=== PATIENT | male | born 1960 | race Caucasian/White ===

== ENCOUNTER 2019-10-29 07:16 | Outpatient (CLI) | payer OTHER, SELFPAY ==
--- NOTE | 2019-10-29 07:15 | XR_ITS ---
WS: [id number] XR KUB [id number] REASON FOR EXAM: . FINDINGS: Numerous calcified densities are seen in the right upper quadrant of the abdomen most likel y these are renal calculus although gallstones could give similar appearance. There is also small stones seen in the left kidney. There is degenerate changes of the lumbar spine. XR/XR KUB 45000 IMPRESSION: Persistent multiple stones overriding the right kidney most likely renal calcul us although gallstones could give a similar impression. There stones seen in the left kidney.
== END 2019-10-29 07:17 | disposition home or self-care (01) ==
LOC: RAD 07:18
PROVIDERS: Family Provider Internal Medicine; PCP Internal Medicine; Visit Provider Urology
DX: N20.0 Calculus of kidney (principal)
CPT/HCPCS: 74018; 81001

== ENCOUNTER 2020-01-26 11:21 | Emergency (ER) | payer OTHER, SELFPAY ==
--- NOTE | 2020-01-26 11:25 | XR_ITS ---
WS: [id number] XR knee LT 3V* [id number] REASON FOR EXAM: injury FINDINGS: No fractures of the patella, femur, tibia, fibula. The meniscal spaces are well preserved. The patellofemoral articulation show degenerate changes. The patella tibial spaces were normal. XR/XR knee LT 3V* [id number] IMPRESSION: Mild osteoarthritic changes No fractures seen.
[2020-01-26 12:28] VITALS: BP 112/79; PULSE 83; RESP 14; TEMP 36.4; O2SAT 95; BMI 37.8
--- NOTE | 2020-01-26 12:34 | ED_ITS ---
HPI - Extremity Problem General: Chief complaint: Extremity Injury, Lower Stated complaint: LEFT KNEE PAIN Time Seen by Provider: 01/26/20 12:34 History of Present Illness: HPI Narrative: Patient is a 59-year-old male comes to the ED with left knee pain. Patient states that on Sunday he tripped over a trailer and his left knee hit the ground. Ever since fall he has had left knee pain with some swelling. pt came to the ED to check if he had any fractures . Associated symptoms: Deny chest pain, fever(s) or rash Review of Systems Const: Denies: fever(s), chills or fatigue Eyes: Denies: change in vision or eye discomfort ENMT: Denies: throat pain, odynophagia, nasal discharge or nasal congestion Card: Denies: chest pain, palpitations, edema, swelling of feet/ankles, dyspnea on exertion or orthopnea Resp: Denies: dyspnea, productive cough or non-productive cough GI: Denies: abdominal pain, nausea, vomiting, diarrhea, constipation or hematochezia : Denies: flank pain, difficulty urinating, dysuria or hematuria Musc: Reports: extremity pain (left knee) and extremity swelling (left knee); Denies: neck pain or back pain Skin/Breast: Denies: rash or new lesions Neuro: Denies: headache(s), numbness in extremities or weakness in extremities PFS ED PFSH: Medical History Bilateral renal stones Chronic low back pain Encounter for long-term opiate analgesic use H/O renal calculi S/P extracorporeal shock wave therapy Surgical History History of back surgery Hx of decompressive lumbar laminectomy Family History Mother , 82 Dementia Father , 66 CAD (coronary artery disease) Stroke Hypertension Social History Smoking and tobacco status: never smoked Alcohol intake: never Marital status: Current occupational status: retired History of recent travel: No Physical Exam Const: COMMON NORMALS: no acute distress and patient oriented x3 GENERAL APPEARANCE: cooperative and comfortable HENMT: COMMON NORMALS: normocephalic HEAD & SCALP: normocephalic MOUTH: Normal oral and palatal mucosa present THROAT: posterior oropharynx normal and uvula midline Neck/C-Spine: COMMON NORMALS: supple GENERAL: Yes normal visual inspection Resp: COMMON NORMALS: normal respiratory effort, No retractions, No use of accessory muscles and clear to auscultation bilaterally AUSCULTATION: clear to auscultation bilaterally Cardio: COMMON NORMALS: regular rate, regular rhythm, S1 normal heart sound present, S2 normal heart sound present, No gallops present (Cardio), No clicks present (Cardio), No murmurs present (Cardio) and Peripheral pulses 2+ throughout RATE: regular rate RHYTHM: regular rhythm HEART SOUNDS: S1 normal heart sound present and S2 normal heart sound present PERIPHERAL PULSES: Peripheral pulses 2+ throughout GI: COMMON NORMALS: Normal to inspection, nondistended, normoactive bowel sounds present, Soft to palpation, non-tender and no masses PALPATION: Yes Soft to palpation : COMMON NORMALS: Yes no CVA tenderness BLADDER/KIDNEY EXAM: Yes no CVA tenderness Back/Pelvis: COMMON NORMALS: no CVA tenderness Extremity: COMMON NORMALS: no pedal edema LEFT LOWER EXTREMITY: Yes knee joint Left knee: Yes inspection (pt had some swelling around knee with out any warmth or erythema.), Yes palpation (tenderness over anterior aspect of knee), Yes ROM (full but does cause pain) and Yes neurovascular exam (intact) Neuro: COMMON NORMALS: patient oriented x3 and moves all extremities Skin: TRAUMA: abrasion (superficial abrasion on left wu. not actively bleeding. scab w/ healing) Course Vital Signs: Vital signs: Vital Signs Temperature 97.6 F 01/26/20 12:28 Pulse Rate 72 01/26/20 13:27 Respiratory Rate 18 01/26/20 13:27 Blood Pressure 148/74 01/26/20 13:27 Pulse Oximetry 98 01/26/20 13:27 MDM - Extremity (Nontraumatic) Imaging Data^: Xray Ortho: Attestation: I personally reviewed and interpreted this imaging study as follows: Radiologist's impression: [address] [address] XRay Report Signed Patient: Jairo José Unit #: [id number] : 1960 Age/Sex: 59 / M ADM Date: 01/26/20 Loc: ER Room/Bed: Attending Dr: Ordering Provider/Ordering MD: Lazaro Joe MD Date of Service: 01/26/20 Procedure(s): XR knee LT 3V* [id number] Accession Number(s): [id number] Report Number: [id number] WS: [id number] XR knee LT 3V* [id number] REASON FOR EXAM: injury FINDINGS: No fractures of the patella, femur, tibia, fibula. The meniscal spaces are well preserved. The patellofemoral articulation show degenerate changes. The patella tibial spaces were normal. XR/XR knee LT 3V* [id number] IMPRESSION: Mild osteoarthritic changes No fractures seen. Dictated By: Tomasz Pedro DO Signed By: Tomasz Pedro DO Signed Date/Time: 01/26/20 1231 DD/ 1230 Discharge Plan Discharge Patient Disposition: Home, Self-Care Clinical Impression: Contusion of knee, left Qualifiers: Encounter type: initial encounter Qualified Code(s): S80.02XA - Contusion of left knee, initial encounter Condition: Stable Prescriptions: No Action celecoxib [Celebrex] 200 mg capsule 200 mg PO DAILY RF: 0 clopidogrel [Plavix] 75 mg tablet 75 mg PO DAILY RF: 0 bupropion HCl (smoking deter) 150 mg tablet extended release 12 hr 150 mg PO BID RF: 0 venlafaxine 75 mg tablet 75 mg PO DAILY RF: 0 multivitamin Tablet 1 tab PO DAILY RF: 0 aspirin 81 mg tablet,delayed release (DR/EC) 81 mg PO DAILY RF: 0 cholecalciferol (vitamin D3) 2,000 unit tablet 2,000 unit PO DAILY RF: 0 metoprolol tartrate 50 mg tablet 50 mg PO BID RF: 0 atorvastatin 40 mg tablet See Rx Instructions PO DAILY RF: 0 lisinopril 40 mg tablet 40 mg PO DAILY RF: 0 hydrocodone-acetaminophen 10-325 mg tablet 1 tab PO BID PRN (Reason: pain) 30 Days Qty: 60 RF: 0 cyclobenzaprine 10 mg tablet 10 mg PO .PRN 30 Days Qty: 60 RF: 1 hydrocodone-acetaminophen 10-325 mg tablet 1 tab PO BID PRN (Reason: pain) 30 Days Qty: 60 RF: 0 Discharge Orders: Discharge Order (Routine); Ordered 01/26/20 Ordered By: Fred Harrell Referrals: Roberto Giron [Primary Care Provider] - Discharge Diet: Regular Discharge Activity: Increase activity as tolerated Patient Instructions: Knee Pain (ED) Activity Restrictions/Additional Instructions: Set an appointment up with your PCP in the next 5 days for reevaluation. Rest, ice and elevate left leg to help with symptoms and swelling. Take ibuprofen up to 800 mg 3 times a day to help with pain and inflammation. Discharge Date/Time: 01/26/20 13:30 Coding Level of Care Code ED Accounts Payable Representative for Chg Fwd Exam Comprehensive
[2020-01-26] MEDS: ketorolac 30 mg/mL INJ IM (13:14)
[2020-01-26 13:27] VITALS: BP 148/74; PULSE 72; RESP 18; O2SAT 98
== END 2020-01-26 13:30 | disposition home or self-care (01) ==
PROVIDERS: Emergency Provider Physician Assistant; PCP Internal Medicine
DX: S80.02XA Contusion of left knee, initial encounter (principal); W18.09XA Striking against other object with subsequent fall, initial encounter; Z79.02 Long term (current) use of antithrombotics/antiplatelets; Z79.82 Long term (current) use of aspirin
CPT/HCPCS: 12345; 73562; 96372; 99281; 99283; J1885

== ENCOUNTER 2020-02-20 15:02 | Outpatient (CLI) | payer OTHER, SELFPAY ==
--- NOTE | 2020-02-20 15:13 | XRR_ITS ---
PROCEDURE INFORMATION: Exam: XR Chest, 2 Views Exam date and time: 02/20/2020 3:45 PM Age: 59 years old Clinical indication: Condition or disease; Other: Malignant melanoma or other part of trunk TECHNIQUE: Imaging protocol: XR of the chest Views: 2 views. COMPARISON: CR Chest 1 [place] [id number] 10/08/2015 9:50 AM FINDINGS: Lungs: Unremarkable. No consolidation. Pleural space: Unremarkable. No pleural effusion. No pneumothorax. Heart/Mediastinum: Unremarkable. No cardiomegaly. Bones/joints: Unremarkable. XR/XR chest 2V* 19483 IMPRESSION: No acute findings.
== END 2020-02-20 15:03 | disposition home or self-care (01) ==
LOC: RAD 15:08
PROVIDERS: Visit Provider Nurse Practitioner
DX: C43.59 Malignant melanoma of other part of trunk (principal)
CPT/HCPCS: 71046

== ENCOUNTER → 2020-03-02 09:36 | Outpatient (BNVA) | payer OTHER, SELFPAY | PROVIDERS: Family Provider Internal Medicine; PCP Family Medicine; Visit Provider Anesthesiology | DX: G89.29 Other chronic pain (principal); M54.42 Lumbago with sciatica, left side; Z79.891 Long term (current) use of opiate analgesic | CPT/HCPCS: 99213; 99214 ==

== ENCOUNTER 2020-03-03 07:05 | Outpatient (CLI) | payer OTHER, SELFPAY ==
--- NOTE | 2020-03-03 07:15 | XRR_ITS ---
PROCEDURE INFORMATION: Exam: XR Abdomen, 1 View Exam date and time: 03/03/2020 7:18 AM Age: 60 years old Clinical indication: Condition or disease; Kidney or ureter condition; Calculus (stone) in kidney; Additional info: Stones TECHNIQUE: Imaging protocol: XR of the abdomen. Views: Frontal supine view of the abdomen. 1 View. COMPARISON: CR XR KUB 94306 10/29/2019 7:28 AM FINDINGS: Gastrointestinal tract: No dilated gas-filled loops of bowel. Organs: There is bilateral nephrolithiasis with the stone burden being worse on the right. No significant change in the number or size of calculi in the interval. Bones/joints: Multilevel bridging osteophytes in the lumbar spine and lower thoracic spine. XR/XR KUB 51678 IMPRESSION: Bilateral, asymmetric nephrolithiasis.
== END 2020-03-03 07:06 | disposition home or self-care (01) ==
LOC: RAD 07:05
PROVIDERS: PCP Internal Medicine; Visit Provider Urology
DX: N20.0 Calculus of kidney (principal)
CPT/HCPCS: 74018; 81001

== ENCOUNTER → 2020-05-19 09:19 | Outpatient (BNVA) | payer OTHER, SELFPAY | PROVIDERS: Family Provider Internal Medicine; PCP Family Medicine; Visit Provider Anesthesiology | DX: G89.29 Other chronic pain (principal); M54.42 Lumbago with sciatica, left side; Z79.891 Long term (current) use of opiate analgesic | CPT/HCPCS: 99213; 99214 ==

== ENCOUNTER 2020-06-08 07:05 | Outpatient (CLI) | payer OTHER, SELFPAY ==
--- NOTE | 2020-06-08 07:00 | XRR_ITS ---
PROCEDURE INFORMATION: Exam: XR Abdomen, 1 View Exam date and time: 06/08/2020 7:21 AM Age: 60 years old Clinical indication: Condition or disease; Kidney or ureter condition; Calculus (stone) in kidney; Prior surgery; Surgery type: Lower back; Additional info: Bilateral renal stones TECHNIQUE: Imaging protocol: XR of the abdomen. Views: Frontal supine view of the abdomen. 1 View. COMPARISON: CR XR KUB 41007 03/03/2020 7:15 AM FINDINGS: Gastrointestinal tract: Mild bowel dilatation and prominent stool. Organs: Bilateral renal calculi, including an 11 mm right renal calculus. Note the renal fossa are partially obscured by overlying bowel gas and stool. Bones/joints: Degenerative change. XR/XR KUB 66677 IMPRESSION: Bilateral renal calculi, including an 11 mm right renal calculus. Note the renal fossa are partially obscured by overlying bowel gas and stool.
== END 2020-06-08 07:06 | disposition home or self-care (01) ==
LOC: RAD 07:07
PROVIDERS: PCP Family Medicine; Visit Provider Urology
DX: N20.0 Calculus of kidney (principal)
CPT/HCPCS: 74018; 81001

== ENCOUNTER → 2020-07-14 07:58 | Outpatient (BNVA) | payer OTHER, SELFPAY | PROVIDERS: PCP Family Medicine; Visit Provider Anesthesiology | DX: G89.29 Other chronic pain (principal); M54.42 Lumbago with sciatica, left side; M54.41 Lumbago with sciatica, right side; Z79.891 Long term (current) use of opiate analgesic | CPT/HCPCS: 99212; 99214 ==

== ENCOUNTER → 2020-09-07 09:31 | Outpatient (BNVA) | payer OTHER, SELFPAY | PROVIDERS: PCP Family Medicine; Visit Provider Anesthesiology | DX: G89.29 Other chronic pain (principal); M54.5 Low back pain; Z79.891 Long term (current) use of opiate analgesic | CPT/HCPCS: 99213 ==

== ENCOUNTER → 2020-10-28 08:40 | Outpatient (BNVA) | payer OTHER, SELFPAY | PROVIDERS: PCP Family Medicine; Visit Provider Anesthesiology | DX: G89.29 Other chronic pain (principal); M54.5 Low back pain; Z79.891 Long term (current) use of opiate analgesic | CPT/HCPCS: 99213 ==

== ENCOUNTER → 2021-01-14 08:45 | Outpatient (BNVA) | payer OTHER, SELFPAY | PROVIDERS: PCP Family Medicine; Visit Provider Anesthesiology | DX: G89.29 Other chronic pain (principal); M54.5 Low back pain; Z79.891 Long term (current) use of opiate analgesic | CPT/HCPCS: 99213 ==

== ENCOUNTER → 2021-04-06 13:26 | Outpatient (BNVA) | payer OTHER, SELFPAY | PROVIDERS: PCP Family Medicine; Visit Provider Anesthesiology | DX: G89.29 Other chronic pain (principal); M54.5 Low back pain; Z79.891 Long term (current) use of opiate analgesic | CPT/HCPCS: 99213 ==

== ENCOUNTER 2021-06-08 07:04 | Outpatient (CLI) | payer OTHER, SELFPAY ==
--- NOTE | 2021-06-08 07:15 | XR_ITS ---
WS: [id number] XR KUB 38933 REASON FOR EXAM: RENAL STONES FINDINGS :Examination degraded by motion artifact. Right intrarenal calculi unchanged compared to 06/08/2020. Left renal calculi unchanged compared to 06/08/2020. No calculi along the course of the ureters or overlying the bladder identified. No other significant abdominal abnormality. XR/XR KUB 33066 IMPRESSION: Bilateral renal calculi unchanged compared to 06/08/2020.
== END 2021-06-08 07:05 | disposition home or self-care (01) ==
LOC: RAD 07:06
PROVIDERS: PCP Family Medicine; Visit Provider Urology
DX: N20.0 Calculus of kidney (principal)
CPT/HCPCS: 74018; 81003

== ENCOUNTER → 2021-06-21 08:39 | Outpatient (BNVA) | payer OTHER, SELFPAY | PROVIDERS: PCP Family Medicine; Visit Provider Anesthesiology | DX: G89.29 Other chronic pain (principal); M54.50 Low back pain, unspecified; Z79.891 Long term (current) use of opiate analgesic; Z87.891 Personal history of nicotine dependence | CPT/HCPCS: 99213 ==

== ENCOUNTER → 2021-08-24 13:52 | Outpatient (BNVA) | payer OTHER, SELFPAY | PROVIDERS: PCP Family Medicine; Visit Provider Anesthesiology | DX: G89.29 Other chronic pain (principal); M45.0 Ankylosing spondylitis of multiple sites in spine; Z79.891 Long term (current) use of opiate analgesic; Z87.891 Personal history of nicotine dependence | CPT/HCPCS: 99213 ==

== ENCOUNTER → 2021-11-14 09:53 | Outpatient (BNVA) | payer OTHER, SELFPAY | PROVIDERS: PCP Family Medicine; Visit Provider Surgery | DX: Z20.822 Contact with and (suspected) exposure to COVID-19 (principal); Z11.52 Encounter for screening for COVID-19 | CPT/HCPCS: 87635 ==

== ENCOUNTER 2021-11-17 08:31 | Day surgery (SDC) | payer OTHER, SELFPAY ==
[2021-11-16 09:01] VITALS: BMI 35.5
--- NOTE | 2021-11-17 08:46 | ANES.PREANE2 ---
Pre-Anesthetic Assessment Height/Weight: Height 1.96 m Weight 136.078 kg Operation Date: 11/17/21 10:15 Proposed Procedures p Colonoscopy 45557/r94.8(Not Applicable) - Jesús Oliva MD Familial anesthetic complications: None Was Beta Meseret taken within 24 hours: Yes Was Clonidine taken within 24 hours: N/A Last intake: > 8hrs Social No alcohol and No tobacco Exam alert, oriented x 3, clear to auscultation bilaterally and regular rate & rhythm Airway Mallampati: Class IV Dentition: other (missing) Comments: Comments: large tongue, poor mouth opening CV/HEM Coronary Artery Disease (> 1 year ago - 2 stents) and Hypertension Hepatic None reported GI None reported Metabolic None reported Musc/skel None reported Neuropsych None reported Anesthetic Plan ASA status: 3 Anesthesia: MAC Risk of > 500 ml blood loss (7ml/kg in children): No Medications/Allergies Home Medications Medication Instructions Recorded Confirmed Last Taken Type aspirin 81 mg tablet,delayed 81 mg PO DAILY 10/29/19 11/16/21 Unknown History release atorvastatin 40 mg tablet See Rx Instructions PO DAILY tab 10/29/19 11/16/21 Unknown History bupropion HCl (smoking deter) 150 150 mg PO BID 10/29/19 11/16/21 Unknown History mg tablet,12 hr sustained-release(smoking deterrent) celecoxib 200 mg capsule (Celebrex) 200 mg PO DAILY 10/29/19 11/16/21 Unknown History cholecalciferol (vitamin D3) 50 2,000 unit PO DAILY 10/29/19 11/16/21 Unknown History mcg (2,000 unit) tablet clopidogrel 75 mg tablet (Plavix) 75 mg PO DAILY 10/29/19 11/16/21 Unknown History lisinopril 40 mg tablet 40 mg PO DAILY 10/29/19 11/16/21 Unknown History metoprolol tartrate 50 mg tablet 50 mg PO BID tab 10/29/19 11/16/21 Unknown History multivitamin 1 tab PO DAILY 10/29/19 11/16/21 Unknown History venlafaxine 75 mg tablet 75 mg PO DAILY 10/29/19 11/16/21 Unknown History prazosin 2 mg capsule 2 mg PO .BEDTIME cap 03/02/20 11/16/21 Unknown History fluticasone propionate 50 1 spray INTRANASAL DAILY 04/06/21 11/16/21 Unknown History mcg/actuation nasal spray,suspension cyclobenzaprine 10 mg tablet 10 mg PO .PRN 30 Days #60 tab 08/24/21 11/16/21 Unknown Rx hydrocodone 10 mg-acetaminophen 1 tab PO BID PRN 30 Days #60 tab 08/24/21 11/16/21 Unknown Rx 325 mg tablet hydrocodone 10 mg-acetaminophen 1 tab PO BID PRN 30 Days #60 tab 08/24/21 11/16/21 Unknown Rx 325 mg tablet Allergies Allergy/AdvReac Type Severity Reaction Status Date / Time No Known Allergies Allergy Verified 11/04/21 10:59 [facility] Anesthesia Medical History Bilateral renal stones Chronic low back pain Encounter for long-term opiate analgesic use H/O renal calculi Opioid contract exists S/P extracorporeal shock wave therapy Surgical History History of back surgery Hx of decompressive lumbar laminectomy Family History Mother , 82 Dementia Father , 66 CAD (coronary artery disease) Stroke Hypertension Social History Smoking and tobacco status: former smoker Second hand smoke exposure: No Alcohol intake: never Marital status: Current occupational status: retired History of recent travel: No Data Anesthesia Cardiac Studies: No Data to Display
[2021-11-17] MEDS: sodium chloride 0.9% 1,000 ML 30 ML IV (09:20)
--- NOTE | 2021-11-17 09:37 | W.PM.OPSUD ---
Surgery/Procedure H&P Update DATE OF PROCEDURE: November 17, 2021 DATE H&P PERFORMED: 11/02/21 H&P UPDATE INFORMATION: I have reviewed H&P completed within last 30 days, I have examined patient prior to procedure and No changes to prior documentation PREOP DIAGNOSIS: Abnormal PET CT scan of the colon PRIMARY INDICATION FOR PROCEDURE: The same PLANNED PROCEDURE: Operation Date: 11/17/21 10:15 Proposed Procedures p Colonoscopy 26517/r94.8(Not Applicable) - Jesús Oliva MD
[2021-11-17 11:28] VITALS: BP 103/69; PULSE 79; RESP 16; TEMP 36.2; O2SAT 94
[2021-11-17 11:38] VITALS: BP 115/74; PULSE 81; RESP 17; TEMP 36.2; O2SAT 97
== END 2021-11-17 11:53 | disposition home or self-care (01) ==
PROVIDERS: PCP Family Medicine; Visit Provider Surgery
PROC: 0DJD8ZZ Inspection of Lower Intestinal Tract, Via Natural or Artificial Opening Endoscopic (ICD-10-PCS; CPT 45378; principal; 2021-11-17 10:15)
DX: R94.8 Abnormal results of function studies of other organs and systems (principal); I25.10 Atherosclerotic heart disease of native coronary artery without angina pectoris; Z95.5 Presence of coronary angioplasty implant and graft; I10 Essential (primary) hypertension; Z79.82 Long term (current) use of aspirin; Z79.891 Long term (current) use of opiate analgesic; Z87.891 Personal history of nicotine dependence
CPT/HCPCS: 45378; G0121; J7030

== ENCOUNTER → 2021-11-30 08:15 | Outpatient (BNVA) | payer OTHER, SELFPAY | PROVIDERS: PCP Family Medicine; Visit Provider Surgery | DX: Z98.890 Other specified postprocedural states (principal) | CPT/HCPCS: 99213 ==

== ENCOUNTER → 2022-04-04 14:19 | Outpatient (BNVA) | payer OTHER, SELFPAY | PROVIDERS: PCP Family Medicine; Visit Provider Internal Medicine | DX: R07.9 Chest pain, unspecified (principal); I25.10 Atherosclerotic heart disease of native coronary artery without angina pectoris; Z87.891 Personal history of nicotine dependence | CPT/HCPCS: 99203; 99204 ==

== ENCOUNTER 2022-06-08 06:58 | Outpatient (CLI) | payer OTHER, SELFPAY ==
--- NOTE | 2022-06-08 07:05 | XR_ITS ---
WS: [id number] KUB, AP view, 06/08/2022 Clinical Data: Bilateral Renal Stones Comparison: KUB, 06/08/2021 Findings: There are bilateral renal calcifications unchanged. Fecal material and bowel gas obscures detail over both kidneys. The true pelvis shows no significant calcifications. There is osteoarthritis with dext roscoliosis of the lumbar spine. XR/XR KUB 53752 Impression: No change in bilateral renal calcifications.
== END 2022-06-08 06:59 | disposition home or self-care (01) ==
LOC: RAD 07:00
PROVIDERS: PCP Family Medicine; Visit Provider Urology
DX: N20.0 Calculus of kidney (principal)
CPT/HCPCS: 74018; 81003; 99213

== ENCOUNTER 2022-07-07 08:07 | Outpatient (CLI) | payer OTHER, SELFPAY ==
--- NOTE | 2022-07-07 08:18 | NMCV_ITS ---
NM otilio perf SPECT r/s* [id number] Jairo José Age: 62 Gender: M : 1960 Exam Date: 07/07/2022 09:42 Ordering Phys: Stewart Jaimes M.D ([email or web address]) Technologist: JIMMIE Yepez Exam Location: [facility] Indications: CHEST PAIN STRESS TEST Please see separate stress test report in [facility] for full findings IMAGE PROTOCOL Rest/Stress 1 Lexiscan Day Radiopharmaceutical Dose (mCi) Administration Site Administered by Rest: Tc-99m 9.5 IV JIMMIE Alcala Sestamibi Stress:Tc-99m 28.4 IV JIMMIE Alcala Sestamibi Rest: 07-Jul-2022 60 Discovery 630 Stress: 07-Jul-2022 30 Discovery 630 0.4mg Lexiscan. Images obtained in supine and prone position. SPECT RESULTS Technical Quality: Excellent Raw Data Analysis: Normal Image Corrections: No attenuation or motion correction applied Summed Stress Score: 9 Summed Rest Score: 3 Summed Difference Score: 6 PERFUSION FINDINGS Small sized perfusion abnormality of mid anterior and apical inferior murphy with reversibility in mid to apical anterior and basal to apical inferior and apical lateral murphy. FUNCTIONAL RESULTS (calculated via Gated SPECT) Stress Image LV EF (%): 60 Stress EDV (mL):114 TID: 1.15 Stress ESV (mL):46 FUNCTIONAL FINDINGS: The left ventricle is normal in size. Transient Ischemia Dilatation of 1.1. The left ventricular ejection fraction is normal with a value of 60%. There seems to be hypokinesis of inferior wall. IMPRESSIONS 1. Medium sized partially reversible mid to apical anterior, basal to apical inferior and apical lateral murphy. 2. This may represent old myocardial infarction with mild gerardo-infarct ischemia in left anterior descending/right coronary artery territory. 3. The left ventricular ejection fraction is normal with a value of 60%. 4. There seems to be hypokinesis of inferior wall. 5. EKG portion of the study will be reported separately. Peggy Calvin MD (Electronically Signed) Final Date: 09 July 2022 11:36 S
--- NOTE | 2022-07-07 08:18 | ECG_ITS ---
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 Interpretive Statements NAME OF STUDY: LEXISCAN SESTAMIBI STRESS TEST INDICATION: Chest Pain, PROCEDURE: At the baseline, the EKG revealed normal sinus rhythm with normal ST Ts. Q waves in the inferior leads suggesting possible old inferior wall IA. The baseline heart was 79 bpm with a blood pressue of 105/76 mm of Hg Lexiscan was infused over a period of 20 seconds. A total of 0.4 milligrams of Lexiscan was infused. The stress phase was continued for a total of 5 minutes. Heart rate at the end of the stress phase was 86 bpm with a blood pressure 110/76 mm of Hg. The EKG at the peak infusion revealed no significant changes. Sestamibi was injected 20 seconds after the Lexiscan infusion. Heart rate at the end of the recovery phase was 85 bpm with a blood pressure of 108/78 mm of Hg. CONCLUSION: 1. No significant EKG changes with the LexiScan infusion 2. No LexiScan induced chest pain or cardiac arrhythmia 3. Normal blood pressure and heart rate response 4. Sestamibi/sestamibi perfusion scan pending; see separate report. Electronically Signed On 07-16-2022 17:11:04 SCRUBBER SYSTEM ATTENDANT by Brigid Wyatt M.D. [id number]
[2022-07-07 09:09] VITALS: BMI 37.4
[2022-07-07] MEDS: regadenoson 0.4 Mg/5 ml Syringe IVP (10:14)
[2022-07-07 10:36] VITALS: BP 108/77; PULSE 85
== END 2022-07-07 08:08 | disposition home or self-care (01) ==
LOC: CDL 08:09
PROVIDERS: PCP Family Medicine; Visit Provider Internal Medicine
DX: R07.9 Chest pain, unspecified (principal)
CPT/HCPCS: 36415; 78452; 93017; 96374; A9500; J2785

== ENCOUNTER 2022-07-24 10:06 | Outpatient (CLI) | payer OTHER, SELFPAY ==
[2022-07-24 10:29] LABS: Basophils # 0.1 10^3/uL (0.0-0.1); Basophils % 1.2 %; Eosinophils # 0.2 10^3/uL (0.0-0.8); Eosinophils % 2.1 %; Hematocrit 44.7 % (42.0-52.0); Hemoglobin 14.9 g/dL (11.7-16.6); Lymphocytes # 2.2 10^3/uL (0.8-4.8); Lymphocytes % 22.7 %; Mean Corpuscular HGB Conc 33.3 g/dL (30.0-36.0); Mean Corpuscular Volume 96.1 fl (80-94); Mean Platelet Volume 10.1 fL (7.4-10.4); Monocytes # 0.7 10^3/uL (0.2-0.9); Monocytes % 6.8 %; Neutrophils # 6.36 10^3/uL (1.8-7.7); Nucleated Red Blood Cells % 0 %; Platelet Count 318 10^3/cmm (130-400); Red Blood Count 4.65 10^6/uL (4.1-5.3); Red Cell Distribution Width 13.4 % (12.1-15.1); White Blood Count 9.5 10^3/uL (4.0-10.0)
[2022-07-24 10:45] LABS: INR 0.96 (0.83-1.21); Prothrombin Time (Patient) 13.1 Seconds (12.0-15.1)
[2022-07-24 10:51] LABS: Blood Urea Nitrogen 15 mg/dL (8-23); Calcium 9.7 mg/dL (8.5-10.5); Carbon Dioxide 25 mmol/L (22-29); Chloride 102 mmol/L (98-107); Glomerular Filtration Rate 76.2 mL/min (90-130); Glucose 124 mg/dL (65-115); Osmolality Calculated 284 mOsm/kg (285-295); Sodium 136 mmol/L (136-145)
[2022-07-24 10:55] LABS: Anion Gap 13.4 (5-19); Potassium 4.4 mmol/L (3.5-5.1)
== END 2022-07-24 10:07 | disposition home or self-care (01) ==
LOC: LAB 10:08
PROVIDERS: PCP Family Medicine; Visit Provider Internal Medicine
DX: I25.10 Atherosclerotic heart disease of native coronary artery without angina pectoris (principal); R07.9 Chest pain, unspecified; R58 Hemorrhage, not elsewhere classified
CPT/HCPCS: 80048; 85025; 85610

== ENCOUNTER 2022-07-25 08:42 | Outpatient (CLI) | payer OTHER, SELFPAY ==
[2022-07-25] VITALS (14 sets, daily range): BP systolic 91–144; BP diastolic 70–86; PULSE 81–95; RESP 8–24; TEMP 37; O2SAT 93–96; BMI 39.4
--- NOTE | 2022-07-25 09:00 | XACV_ITS ---
Exam Room: 2 Ht: 191 cm Wt: 143 kg BSA: 2.81 m2 Gender: Male : 1960 Exam Priority: Routine Procedure(s): Procedure Description: Diagnostic procedure Procedure Description: Left ventriculography Procedure Description: Coronary Angiography Diagnostic Cath Status: Elective Diagnostic Findings * INDICATION: 62-year-old man with past history of coronary artery disease with PCI of left circumflex artery and LAD in 2014 has been having gradually worsening chest discomfort episodes. He underwent stress test recently that showed prior infarct with gerardo-infarct ischemia in LAD and RCA territory. Plan for coronary angiogram with possible percutaneous coronary intervention today. * Left main artery: No significant stenosis LAD: Has moderate 60% apical LAD stenosis Left circumflex artery: Has patent mid vessel stent. No significant stenosis. RCA: Patent. * Coronary angiography shows right dominance. Conclusions 1. Left main artery: No significant stenosis LAD: Has moderate 60% apical LAD stenosis Left circumflex artery: Has patent mid vessel stent. No significant stenosis. RCA: Patent. Recommendations * Aggressive risk factor modification. * Outpatient cardiology follow-up in 4 weeks. Interventional RX Recommendation: medical therapy and/or counseling Diagnostic RX Recommendation: medical therapy and/or counseling LV EDP: 55 mmHg Pressures Phase:Rest AO : 112 / 70 ( 85 ) @ 11:28:00 AM 113 / 61 ( 84 ) @ 11:28:00 AM LV : 129 / 1 / 17 @ 11:27:00 AM 124 / -2 / 13 @ 11:28:00 AM 126 / -2 / 14 @ 11:28:00 AM Valves Phase:DefaultPhase AV : 15.0 @ 11:36:50 AM AV Mean Gradient: 16.0 @ 11:36:50 AM Clinical Evaluation EBL: 5mL-10mL Procedural Details Procedure Consent Obtained. Admit Source: Out Patient. Pre-Procedure Time Out. Identified patient by full name and date of as verbalized by the patient/guarantor. Does the consent match the physician's order: Yes. Accurate & Complete Informed Consent: Yes. Inpatient/Outpatient History & Physical on Chart: Yes. If H&P is completed, is and addenduem needed: No; If yes, is the addendum complete: N/A. Visualize and Verify Site with Patient/Guarantor: N/A. Relevant Radiology Images available: N/A. The risks, benefits, and alternatives of sedation and/or procedure were discussed by physician. The patient agrees to continue. Procedure started. [facility] Clinical Fraility Score: 3: Managing Well. Press Smith Helper Indications: Worsening Angina. Chest Pain Symptom Assessment: Typical Angina Symptoms. Cardiovascular Instability: No. Correct patient, site and procedure confirmed by cath team. Current diagnosis: abnormal stress test. PERRLA. Strong, equal hand inseamer bilaterally. Lungs clear x 5 lobes. IV Site on Arrival: 20 gauge in the right anticubital. IV Fluids: 0.9% NaCl at KVO. 0 mL infused prior to crime laboratory analyst. Pre Procedural Pulses: bilateral posterior tibial was 3+. Pre Procedural Pulses: bilateral radial was 3+. Pre Procedural Pulses: right dorsalis pedis was 3+. Pre Procedural Pulses: left dorsalis pedis was 2+. Oxygen started at 2liters/min via nasal canula. right groin was prepped with chloroprep then draped in the usual sterile fashion. right radial was prepped with chloroprep then draped in the usual sterile fashion. Physician notified. Baseline sample Acquired. HR: 80 BPM. Physician arrived. Physician scrubbed in. Immediate Pre-Procedure Time Out. Correct Patient: Yes; Correct Procedure: Yes; Correct Site: Yes; Correct Patient Position: Yes; Correct Supplies: Yes; Dried Flammable Prep: Yes; Blood Products Available: N/A;. Lidocaine 1% infiltrated to the right radial. Arterial access obtained. A 5 gabonese TIG catheter in over wire. Multiple views taken of left coronary artery. Catheter redirected to the RCA. Multiple views taken of right coronary artery. Catheter removed over the exchange wire. A 6 gabonese Angled Pig catheter in over wire. EDP Sample taken: LV 129/1,17; HR: 89 BPM; SpO2: 96%. LV gram performed in ORTIZ @ 10 mL/second for a total of 30 mL. LV EDP: 55. EDP Sample taken: LV 124/-3,13; HR: 86 BPM; SpO2: 96%. Pullback taken: LV 126/-3,14; AO 112/70(85); Mean: 16mmHg, Peak to Peak: 15mmHg, SEP: 16sec/min; HR: 85 BPM; SpO2: 94%. Catheter out. wire out. A TR Band was unsuccessful obtaining hemostatsis at the Right Radial artery insertion site. Post Procedure: Pulses reassessed and unchanged. PERRLA. Strong, equal hand inseamer bilaterally. No VTE prophylaxis required. Total IV fluids: 25 mL. Medication's Wasted: Nitro = 49.8 mg. Medication's Wasted: Heparin = 1000 units. Medication's Wasted: Other = versed 2 mg. Medication's Wasted: Other = fentanyl 25 mcg. Post-op diagnosis: non obstructive CAD. Complications: none. Estimated blood loss: 5mL-10mL. Responsiveness - Normal response to verbal stimuli; alert and oriented, PERRLA. Airway - Unaffected, no intervention required; spontaneous ventilation. Circulation: W/N/L, pulses unchanged. Nausea/Vomiting: No. Procedure completed. Patient transferred by wheelchair to CPRU. Vital chart was stopped. Access Site Site: Right Radial artery Sheath Size: 6 Fr Hemostasis Method: TR Band Hemostasis Success: Unsuccessful Procedure Medications Start: 11:11 AM Stop: 11:11 AM Medication: Versed Amount: 1 mg Route: I.V. Start: 11:12 AM Stop: 11:12 AM Medication: Fentanyl Amount: 50 mcg Route: I.V. Start: 11:15 AM Stop: 11:15 AM Medication: Versed Amount: 1 mg Route: I.V. Start: 11:18 AM Stop: : AM Medication: Nitrogylcerin Amount: 200 mcg Route: I.A. Start: 11:19 AM Stop: : AM Medication: Heparin Amount: 5000 units Route: I.V. Start: 11: AM Stop: : AM Medication: Fentanyl Amount: 25 mcg Route: I.V. I, the attending physician, have reviewed and verified all procedure medications. Yes, all medications given per verbal order History/Risk Factors Hypertension: No Dyslipidemia: No Peripheral Arterial Disease (PAD): No Myocardial Infarction (ID): No Obesity: No Tobacco Use: Former Prior Interventions PCI: Yes CABG: No Valve Surgery: No Date of PCI: 10/08/2014 Report Signatures Finalized by Stewart Jaimes MD on 08/07/2022 05:44 PM
[2022-07-25] MEDS: diphenhydrAMINE 50 mg Capsule PO (09:22)
--- NOTE | 2022-07-25 11:08 | W.PM.OPSFHP ---
Same Day Surgery H&P Indication for Procedure/HPI DATE OF PROCEDURE: July 25, 2022 CHIEF COMPLAINT/INDICATIONFOR SURGICAL PROCEDURE: Worsening angina/abnormal stress test PREOP DIAGNOSIS: Worsening angina/abnormal stress test PLANNED PROCEDURE: Operation Date: 07/25/22 10:00 Proposed Procedures p Left Cardiac Catheterization 13462,R07.9,R94.39,R06.02(Left) - Stewart Jaimes M.D Possible percutaneous coronary intervention 62-year-old man with past history of coronary artery disease with PCI of left circumflex artery and LAD in 2014 has been having gradually worsening chest discomfort episodes. He underwent stress test recently that showed prior infarct with gerardo-infarct ischemia in LAD and RCA territory. Plan for coronary angiogram with possible percutaneous coronary intervention today. Medications/Allergies* Home Medications Medication Instructions Recorded Confirmed Type aspirin 81 mg tablet,delayed 81 mg PO DAILY 10/29/19 07/24/22 History release atorvastatin 40 mg tablet See Rx Instructions PO DAILY 10/29/19 07/24/22 History bupropion HCl (smoking deter) 150 150 mg PO BID 10/29/19 07/24/22 History mg tablet,12 hr sustained-release(smoking deterrent) celecoxib 200 mg capsule (Celebrex) 200 mg PO DAILY 10/29/19 07/24/22 History cholecalciferol (vitamin D3) 50 2,000 unit PO DAILY 10/29/19 07/24/22 History mcg (2,000 unit) tablet clopidogrel 75 mg tablet (Plavix) 75 mg PO DAILY 10/29/19 07/24/22 History lisinopril 40 mg tablet 40 mg PO DAILY 10/29/19 07/24/22 History metoprolol tartrate 50 mg tablet 50 mg PO BID 10/29/19 07/24/22 History multivitamin 1 tab PO DAILY 10/29/19 07/24/22 History venlafaxine 75 mg tablet 75 mg PO DAILY 10/29/19 07/24/22 History prazosin 2 mg capsule 2 mg PO .BEDTIME 03/02/20 07/24/22 History fluticasone propionate 50 1 spray intranasal DAILY 04/06/21 07/24/22 History mcg/actuation nasal spray,suspension Allergies/Adverse Reactions Allergy/AdvReac Type Severity Reaction Status Date / Time No Known Allergies Allergy Verified 07/24/22 09:04 Current Medications: Generic Name Dose Route Start Last Admin Trade Name Michelle PRN Reason Stop Dose Admin Sodium Chloride 1,000 mls @ 50 mls/hr 07/25/22 09:00 07/25/22 09:22 Sodium Chloride 0.9% IV 07/26/22 04:59 Not Given .Q20H ONE Pertinent History/Comorbid Conditions* Medical History (Updated 04/04/22 @ 15:23 by Stewart Jaimes M.D) Bilateral renal stones Chronic low back pain Encounter for long-term opiate analgesic use H/O renal calculi Opioid contract exists S/P extracorporeal shock wave therapy Surgical History (Updated 01/02/20 @ 11:24 by Denny Land MD) History of back surgery Hx of decompressive lumbar laminectomy Family History (Updated 10/21/19 @ 12:33 by Kely Kay RN) Father, 66 Mother, 82 CAD (coronary artery disease) Father Dementia Mother Hypertension Father Stroke Father Social History Smoking and tobacco status: former smoker (chewed for 30 years) Second hand smoke exposure: No Alcohol intake: never Marital status: Current occupational status: retired History of recent travel: No Pertinent Exam Findings alert, oriented x 3, clear to auscultation bilaterally and regular rate & rhythm Conscious Sedation Assessment PATIENT ASSESSED PRIOR TO SEDATION, WITH NO CHANGE NOTED: Yes AIRWAY EVAL/ANESTHESIA PLAN: normal airway, see other exam findings, ASA III, Local Anesthesia, Risks, benefits & alternatives of sedation and/or procedure discussed and Patient agrees to continue as planned ADDITIONAL INFORMATION: Moderate sedation Recommendations Surgery/Procedure today (Left heart cath with possible percutaneous coronary intervention) Coding Level of Care Code Acute 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
--- NOTE | 2022-07-25 11:49 | PC.NURSE ---
Received to CPRU Pt received to CPRU for recovery at this time. TR band intact to R radial access site, no hematoma or bleeding noted. Alert and oriented, denies pain. No needs at this time. Call light in reach.
--- NOTE | 2022-07-25 11:54 | SUR.PHASEI ---
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 Patient ambulated to the bed. Alert and oriented x 3. monitoring tech placed and vital signs obtained. TR band intact to the right wrist with no bleeding or hematoma noted. Palpable radial pulse. No other assessment changes noted from pre cath assessment. Will transfer to CSU room 105 shortly.
--- NOTE | 2022-07-25 12:20 | SUR.PHASEI ---
Patient transferred to 105 via wheelchair. Bedside report and access site assessment given to assuming RN.
--- NOTE | 2022-07-25 16:25 | PC.NURSE ---
Patient discharged at 1624. He ambulated to the entrance with nurse and family member. All discharge instructions and follow up appointments given. Patient verbalized understanding to not use right wrist to bear any weight over 5lb.
== END 2022-07-25 16:24 | disposition home or self-care (01) ==
LOC: CCL 08:43 → CSU 12:47
PROVIDERS: PCP Family Medicine; Visit Provider Internal Medicine
DX: I25.110 Atherosclerotic heart disease of native coronary artery with unstable angina pectoris (principal); R94.39 Abnormal result of other cardiovascular function study; Z95.5 Presence of coronary angioplasty implant and graft; Z79.82 Long term (current) use of aspirin; Z79.891 Long term (current) use of opiate analgesic; Z87.891 Personal history of nicotine dependence
CPT/HCPCS: 36415; 93458; 96365; 99152; 99153; C1769; C1887; C1894; G0378; J1644; J2250; J3010; J3490; J7030; Q0163; Q9967

== ENCOUNTER → 2022-08-25 07:15 | Outpatient (BNVA) | payer OTHER, SELFPAY | PROVIDERS: PCP Family Medicine; Referring Provider Family Medicine; Visit Provider Student in an Organized Health Care Education/Training Program | DX: S46.211A Strain of muscle, fascia and tendon of other parts of biceps, right arm, initial encounter (principal); X50.0XXA Overexertion from strenuous movement or load, initial encounter; M77.11 Lateral epicondylitis, right elbow | CPT/HCPCS: 99204 ==

== ENCOUNTER 2022-08-30 05:53 | Day surgery (SDC) | payer OTHER, SELFPAY ==
[2022-08-29 12:32] VITALS: BMI 35.5
[2022-08-30] VITALS (8 sets, daily range): BP systolic 83–134; BP diastolic 63–91; PULSE 78–86; RESP 16–18; TEMP 36.2–36.8; O2SAT 92–99
--- NOTE | 2022-08-30 | XR_ITS ---
WS: [id number] Right forearm, C-arm fluoroscopy, 08/30/2022 Clinical Data: or pic forearm Comparison: None. Findings: Dr. Cooper performed the procedure on the proximal right forearm. XR/XR forearm RT 2V [id number] Impression: Procedure on the proximal right forearm.
[2022-08-30] MEDS: acetaminophen 1,000 MG/100 ML PIGGYBACK 400 MG IV (06:35)
[2022-08-30] MEDS: sodium chloride 0.9% 1,000 ML 30 ML IV (06:47)
--- NOTE | 2022-08-30 06:58 | W.PM.OPSUD ---
Surgery/Procedure H&P Update DATE OF PROCEDURE: August 30, 2022 DATE H&P PERFORMED: 08/25/22 CHANGES TO PREVIOUS DOCUMENTATION: None PREOP DIAGNOSIS: Right distal biceps tendon rupture PRIMARY INDICATION FOR PROCEDURE: Right Distal Biceps Tendon Rupture PLANNED PROCEDURE: Operation Date: 08/30/22 07:00 Proposed Procedures p Right distal biceps tendon repair [id number] ,[id number](Right) - Lorne Harrell DO
--- NOTE | 2022-08-30 07:00 | P.ANESASSM_ITS ---
Pre-Anesthetic Assessment Height/Weight: Height 1.96 m Weight 136.078 kg Temp Pulse Resp BP Pulse Ox O2 Del Method 97.1 F L 82 17 134/91 93 08/30/22 06:19 08/30/22 06:19 08/30/22 06:19 08/30/22 06:19 08/30/22 06:19 08/30/22 06:20 Preop Diagnosis: Right distal biceps tendon rupture Operation Date: 08/30/22 07:00 Proposed Procedures p Right distal biceps tendon repair 42124 ,[id number](Right) - Lorne Harrell, Familial anesthetic complications: none Was Beta Meseret taken within 24 hours: Yes Was Clonidine taken within 24 hours: N/A Last intake: Intake Last Liquid Date 08/29/22 Last Liquid Time 19:00 Last Solid Date 08/29/22 Last Solid Time 16:30 Social No alcohol and No tobacco Exam alert, oriented x 3, clear to auscultation bilaterally and regular rate & rhythm Airway Submandibular: within normal limits Cervical ROM: within normal limits Mallampati: Class II Dentition: full Pulmonary Sleep Apnea (CPAP) CV/HEM Stable Angina, Coronary Artery Disease and Hypertension stents x 2-2014 history of kidney stones Hepatic None reported GI None reported Metabolic Morbid Obesity [facility] Lower Back Pain back surgery L4-5 Neuropsych Depression Anesthetic Plan ASA status: 3 Anesthesia: General Risk of > 500 ml blood loss (7ml/kg in children): No Medications/Allergies Home Medications Medication Instructions Recorded Confirmed Last Taken Type aspirin 81 mg tablet,delayed 81 mg PO DAILY 10/29/19 08/30/22 08/24/22 History release atorvastatin 40 mg tablet 40 mg PO DAILY 10/29/19 08/30/22 08/29/22 09:00 History bupropion HCl (smoking deter) 150 150 mg PO BID 10/29/19 08/30/22 08/29/22 09:00 History mg tablet,12 hr sustained-release(smoking deterrent) celecoxib 200 mg capsule (Celebrex) 200 mg PO DAILY 10/29/19 08/30/22 08/29/22 09:00 History cholecalciferol (vitamin D3) 50 2,000 unit PO DAILY 10/29/19 08/30/22 08/30/22 05:00 History mcg (2,000 unit) tablet clopidogrel 75 mg tablet (Plavix) 75 mg PO DAILY 10/29/19 08/30/22 08/24/22 History lisinopril 40 mg tablet 40 mg PO DAILY 10/29/19 08/30/22 08/29/22 History metoprolol tartrate 50 mg tablet 50 mg PO BID 10/29/19 08/30/22 08/30/22 05:00 History multivitamin 1 tab PO DAILY 10/29/19 08/30/22 08/30/22 05:00 History venlafaxine 75 mg tablet 75 mg PO DAILY 10/29/19 08/30/22 08/29/22 09:00 History prazosin 2 mg capsule 2 mg PO .BEDTIME 03/02/20 08/29/22 07/24/22 20:00 History fluticasone propionate 50 1 spray intranasal DAILY 04/06/21 08/30/22 08/29/22 21:00 History mcg/actuation nasal spray,suspension hydrocodone 10 mg-acetaminophen 1 tab PO BID PRN pain 30 days #60 08/24/21 08/30/22 08/29/22 09:00 Rx 325 mg tablet tabs nitroglycerin 0.4 mg sublingual 0.4 mg sublingual Q5M PRN chest 04/04/22 08/29/22 Unknown Rx tablet pain #20 tabs cyclobenzaprine 10 mg tablet 10 mg PO DAILY 08/30/22 08/30/22 08/29/22 09:00 History hydrocodone 5 mg-acetaminophen 325 1 tab PO Q6H PRN pain 7 days #28 08/30/22 Unknown Rx mg tablet tabs Allergies Allergy/AdvReac Type Severity Reaction Status Date / Time No Known Allergies Allergy Verified 08/30/22 06:13 Current Medications Generic Name Dose Route Start Last Admin Trade Name Freq PRN Reason Stop Dose Admin Sodium Chloride 1,000 mls @ 30 mls/hr 08/30/22 06:15 08/30/22 06:47 Sodium Chloride 0.9% IV 08/31/22 06:14 30 mls/hr .Q24H ROHAN Administration PFSH Anesthesia Medical History (Updated 08/29/22 @ 21:45 by Lorne Harrell DO) Bilateral renal stones Chronic low back pain Encounter for long-term opiate analgesic use H/O renal calculi Opioid contract exists Right lateral epicondylitis S/P extracorporeal shock wave therapy Surgical History History of back surgery Hx of decompressive lumbar laminectomy Family History Mother , 82 Dementia Father , 66 CAD (coronary artery disease) Stroke Hypertension Social History Smoking and tobacco status: former smoker (chewed for 30 years) Second hand smoke exposure: No Alcohol intake: never Marital status: Current occupational status: retired History of recent travel: No Data Anesthesia Cardiac Studies: Sestamibi Stress Test (Cardiology) 07/07
[2022-08-30] MEDS: ceFAZolin 2,000 MG in sodium chloride 0.9% (plus) 50 ML 100 MG IV (07:10)
--- NOTE | 2022-08-30 09:10 | P.OP_ITS ---
Brief Operative Note Date of procedure: 08/30/22 Pre-op diagnosis: Right distal biceps tendon rupture Post-op diagnosis: same Procedure Done: Right distal biceps tendon repair Surgeon: Lorne Harrell Estimated blood loss (mL): 5 Complications: None Post-op Plan: Patient taken to PACU in stable condition recovering well. Patient received appropriate discharge instructions as well as pain medication postoperatively. We will follow-up with me in the office in 2 weeks. We will get him set up with formal physical therapy to begin elbow range of motion next week. Patient understands agrees with current plan. All questions answered. 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
--- NOTE | 2022-08-30 09:11 | PM.PACU ---
PACU note Narrative: Patient splint on in place dressings clean dry and intact. Fingertips warm well-perfused brisk capillary refill less than 2 seconds. Patient is able to wiggle fingers, AIN/PIN/radial/ulnar/median nerve is intact. Sensation tact light touch distally radial/ulnar/median nerve distribution. Exam: awake Disposition: discharged
--- NOTE | 2022-08-30 09:12 | PM.OP ---
Operative Report Date of procedure: August 30, 2022 Pre-op diagnosis: Preop Diagnosis Right distal biceps tendon rupture Post-op diagnosis: Same Procedure done: Right distal biceps tendon repair Implants: Arthrex distal bicep tendon repair kit -Arthrex #2 fiber loop -Arthrex Endobutton Surgeon: Lorne Harrell DO Estimated blood loss: 5 mL 60 minutes IV fluids: See anesthesia record Complications: None Findings: See operative report narrative Condition: stable Disposition: same day Brief History: Patient has been seen and evaluated in the outpatient setting and findings as well as MRI findings consistent with a right distal biceps tendon rupture. Patient did have normal elbow flexion but significant fatigue and weakness with supination. 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 We talked about treatment options as far as nonoperative and operative intervention. At this point time reviewing of his MRI results this tendon is not retracted significantly and should be able to be repaired with direct tendon repair. We did talk about if there is been further retraction that we may need to perform an allograft augmentation repair if needed intraoperatively. Patient understands risks benefits complications alternatives to surgical nonsurgical treatment options. Understanding his risk he agrees to proceed with surgical intervention. All questions answered at this time. Consent obtained in the office. Procedure: Patient seen evaluate in the preoperative holding area. Consent was reviewed and signed with patient. Correct extremity was then marked. Patient seen evaluated by anesthesia department. Once cleared by anesthesia patient was taken back to the operative suite. He was transported onto the OR table in supine position with an armboard to the right upper extremity. A nonsterile tourniquet was applied to the right upper arm. Patient then underwent anesthesia per the anesthesia department. The right upper extremity was then prepped and draped in standard orthopedic fashion. Final timeout performed. Patient received appropriate preoperative antibiotics. Esmarch tourniquet was used exsanguinate the right upper extremity tourniquet was insufflated to 250 mmHg. A standard oblique incision centered over the radial head was made after I introduced a mini C arm to confirm the appropriate level of the radial tuberosity. At this point in time I then made a small scalpel incision just through skin. I then switched to Littler dissection scissors identified subcutaneous vein branching and then identified the forearm fascia. I then incised the fascia longitudinally and then bluntly utilizing my finger probe directly down to the radial tuberosity. At this point time I had my assistant manager of operations utilize only [employer] retractors with care to bluntly retract and protect the lateral antebrachial cutaneous nerve branch. At this point time directly dissected and had direct visualization of the scarred and adhered distal biceps tendon which there was fibrinous tissue but no continuity of the tendon. The tendon was scarred right at the elbow crease. I then utilized a blunt elevator and elevated periosteum off the radial tuberosity. I protected the leash of Alfredo throughout this case I was able to mobilize this branch to allow me to retract with my [employer]'s by my assistant manager of operations for direct visualization of the radial tuberosity. Once I cleared off the footprint for repair I then switched to identifying my distal stump of the biceps tendon which was identified I clamped with an Allis clamp and utilized bluntly my finger to free up any adhesions to allow for appropriate excursion for my repair. At this point time I then debrided the distal end of the stump tendon. There is roughly 1.5 cm was transected to healthy tendon tissue. Next I grabbed Arthrex #2 fiber loop and performed 6 passes with a fiber loop locking my last stitch and now had excellent purchase and excursion with my biceps tendon. At this point I then subsequently loaded this onto Arthrex his Endobutton clamp the sutures and set this aside. Next my assistant manager of operations utilizing [employer] retractors had direct visualization protecting all neurovascular structures with direct visualization of the radial tuberosity. Took a 0.062 K wire loaded on a power drill and marked my planned placement for bicortical drilling with Arthrex Endobutton. This was confirmed with mini C arm to be an appropriate center position of the radial tuberosity with excellent placement. Once this was confirmed I then subsequently loaded Arthrex is drill bit for the Endobutton with plan for bicortical fixation utilizing a underlay technique. I then subsequently drilled bicortically with care not to plunge. I then thoroughly irrigated and removed all bony debris with a suction and once all bony debris was removed I direct visualization of the bicortical drill tunnel. I then loaded the Endobutton on Arthrex his deployment kit and subsequently advanced this bicortically flipped the button and this was confirmed to be flipped and directly onto bone with mini C arm. Once this was done I took a free needle and loaded the suture and sutured the limbs of the FiberWire up back through the tendon and then subsequently cinched the tendon directly onto bone while holding the elbow in roughly 20 degrees of flexion. My assistant manager of operations held this while then I had excellent fixation and opposition of the tendon to the bony surface and subsequently tied the tendon with excellent fixation and square knot. Once this was completed I then was able to check in the tendon had excellent tension as well as fixation. At this point time the excess sutures were then cut. Wound bed was then thoroughly irrigated. Tourniquet was then deflated. Hemostasis was satisfactory. I then closed the subcutaneous tissue with 3-0 Vicryl suture and then the skin with running Monocryl suture with Dermabond and Steri-Strips. Patient tolerated procedure without complications. He was then placed into a posterior splint. Patient was awakened from anesthesia and taken to PACU in stable condition. Disposition: Patient taken PACU in stable condition recovering well. Neurovascularly intact distally. Splint on in place clean dry and intact to be nonweightbearing to the right upper extremity. We will get him started on the distal bicep tendon repair protocol with our physical therapist. Patient will follow-up with me in the office in 2 weeks. He received appropriate discharge instruction as well as pain medication postoperatively. He understands if any questions or concerns and contact the office.
--- NOTE | 2022-08-30 17:28 | ANE.PACU2 ---
Inpatient post-anesthesia follow up: Airway intact: Yes Vital signs: Temperature 98.2 F Pulse Rate 85 Respiratory Rate 17 Blood Pressure 107/78 Pulse Oximetry 93 Oxygen Delivery Me thod Room Air Oxygen Flow Rate 8 Fraction of Inspir ed Oxygen Hydration adequate: Yes Nausea and vomiting: No Pain level: 3 Mental status: Baseline
== END 2022-08-30 10:08 | disposition home or self-care (01) ==
PROVIDERS: PCP Family Medicine; Visit Provider Student in an Organized Health Care Education/Training Program
PROC: (CPT 23430; principal; 2022-08-30 07:00)
DX: S46.211A Strain of muscle, fascia and tendon of other parts of biceps, right arm, initial encounter (principal); W19.XXXA Unspecified fall, initial encounter; G47.30 Sleep apnea, unspecified; I25.110 Atherosclerotic heart disease of native coronary artery with unstable angina pectoris; I10 Essential (primary) hypertension; E66.01 Morbid (severe) obesity due to excess calories; Z68.35 Body mass index [BMI] 35.0-35.9, adult; Z79.82 Long term (current) use of aspirin; Z79.891 Long term (current) use of opiate analgesic; Z87.891 Personal history of nicotine dependence
CPT/HCPCS: 24342; 73090; 76000; C1713; J0131; J0690; J1100; J2405; J2704; J3010; J3490; J7030

== ENCOUNTER → 2022-09-04 10:49 | Outpatient (BNVA) | payer OTHER, SELFPAY | PROVIDERS: PCP Family Medicine; Visit Provider Nurse Practitioner Family | DX: I25.10 Atherosclerotic heart disease of native coronary artery without angina pectoris (principal); Z87.891 Personal history of nicotine dependence | CPT/HCPCS: 99213 ==

== ENCOUNTER 2022-09-06 10:38 | Outpatient (RCR) | payer OTHER, SELFPAY | END 2022-09-26 23:59 | disposition home or self-care (01) | LOC: SOT 10:38 | PROVIDERS: PCP Family Medicine; Visit Provider Student in an Organized Health Care Education/Training Program | DX: S46.211D Strain of muscle, fascia and tendon of other parts of biceps, right arm, subsequent encounter (principal); X58.XXXD Exposure to other specified factors, subsequent encounter | CPT/HCPCS: 97035; 97110; 97166 ==

== ENCOUNTER → 2022-09-18 11:18 | Outpatient (BNVA) | payer OTHER, SELFPAY | PROVIDERS: PCP Family Medicine; Visit Provider Student in an Organized Health Care Education/Training Program | DX: S46.211A Strain of muscle, fascia and tendon of other parts of biceps, right arm, initial encounter (principal); X58.XXXA Exposure to other specified factors, initial encounter | CPT/HCPCS: 99024 ==

== ENCOUNTER 2022-09-27 06:00 | Outpatient (RCR) | payer OTHER, SELFPAY | END 2022-10-19 12:16 | disposition home or self-care (01) | LOC: SOT 06:00 | PROVIDERS: PCP Family Medicine; Visit Provider Student in an Organized Health Care Education/Training Program | DX: Z47.89 Encounter for other orthopedic aftercare (principal) | CPT/HCPCS: 97035; 97110; 97140 ==

== ENCOUNTER → 2022-10-26 10:05 | Outpatient (BNVA) | payer OTHER, SELFPAY | PROVIDERS: PCP Family Medicine; Visit Provider Student in an Organized Health Care Education/Training Program | DX: S46.211A Strain of muscle, fascia and tendon of other parts of biceps, right arm, initial encounter (principal); X58.XXXA Exposure to other specified factors, initial encounter | CPT/HCPCS: 73080; 99024 ==

== ENCOUNTER → 2023-03-02 09:01 | Outpatient (BNVA) | payer OTHER, SELFPAY | PROVIDERS: PCP Family Medicine; Visit Provider Internal Medicine | DX: R07.9 Chest pain, unspecified (principal); I25.10 Atherosclerotic heart disease of native coronary artery without angina pectoris; Z87.891 Personal history of nicotine dependence | CPT/HCPCS: 99214 ==

== ENCOUNTER → 2023-05-15 13:06 | Outpatient (BNVA) | payer OTHER, SELFPAY | PROVIDERS: PCP Family Medicine; Visit Provider Podiatrist Foot & Ankle Surgery | DX: L60.0 Ingrowing nail (principal) | CPT/HCPCS: 11730; 99203 ==

== ENCOUNTER → 2023-05-29 08:43 | Outpatient (BNVA) | payer OTHER, SELFPAY | PROVIDERS: PCP Family Medicine; Visit Provider Podiatrist Foot & Ankle Surgery | DX: L60.0 Ingrowing nail (principal) | CPT/HCPCS: 99213 ==

== ENCOUNTER → 2023-12-07 09:57 | Outpatient (BNVA) | payer OTHER, SELFPAY | PROVIDERS: PCP Family Medicine; Visit Provider Nurse Practitioner Family | DX: I25.10 Atherosclerotic heart disease of native coronary artery without angina pectoris (principal); I10 Essential (primary) hypertension | CPT/HCPCS: 93005; 99214 ==

== ENCOUNTER → 2024-03-06 08:31 | Outpatient (BNVA) | payer OTHER, SELFPAY | PROVIDERS: PCP Family Medicine; Visit Provider Podiatrist Foot & Ankle Surgery | DX: L60.0 Ingrowing nail (principal) | CPT/HCPCS: 11730 ==

== ENCOUNTER → 2024-03-27 08:46 | Outpatient (BNVA) | payer OTHER, SELFPAY | PROVIDERS: PCP Family Medicine; Visit Provider Podiatrist Foot & Ankle Surgery | DX: M79.604 Pain in right leg (principal); L60.0 Ingrowing nail | CPT/HCPCS: 99213 ==

== ENCOUNTER 2024-04-14 14:50 | Outpatient (CLI) | payer OTHER, SELFPAY ==
--- NOTE | 2024-04-14 15:15 | USCV_ITS ---
Jairo José Age: 64 Gender: M : 1960 Exam Date: 04/14/2024 15:04 Ordering Phys: José Manuel Olivares DPM Technologist: CT Exam Location: [facility] [place] Indication: swelling PROCEDURES: Venous duplex imaging was performed in only the right lower extremity. On the right side, the common femoral, superficial femoral, profunda femoral, popliteal, posterior tibial, greater saphenous veins and the peroneal trunk were identified and interrogated in the standard fashion. These veins were found to be easily compressible with spontaneous blood flow. No evidence of insufficiency or thrombus noted. FINDINGS: no dvt CONCLUSIONS No evidence of right lower extremity DVT. Mitchell Urena MD (Electronically Signed) Final Date: 14 April 2024 16:08 S
== END 2024-04-14 14:51 | disposition home or self-care (01) ==
LOC: RAD 14:51
PROVIDERS: PCP Family Medicine; Visit Provider Podiatrist Foot & Ankle Surgery
DX: M79.604 Pain in right leg (principal)
CPT/HCPCS: 93971

== ENCOUNTER → 2024-07-28 15:06 | Outpatient (BNVA) | payer OTHER, SELFPAY | PROVIDERS: PCP Family Medicine; Visit Provider Internal Medicine | DX: I25.10 Atherosclerotic heart disease of native coronary artery without angina pectoris (principal); I10 Essential (primary) hypertension | CPT/HCPCS: 99214 ==

== ENCOUNTER 2024-10-17 07:32 | Outpatient (CLI) | payer OTHER, SELFPAY ==
--- NOTE | 2024-10-17 08:10 | XR_ITS ---
WS: [id number] Exam: XR KUB [id number] Date/Time of Exam: 10/17/2024 8:19 AM Reason For Exam: BILATERAL NEPHROLITHIASIS No bowel obstruction or pneumoperitoneum. No sign of organ enlargement. Numerous calcifications overlie the left kidney. There may be some calcifications in the region of the RIGHT kidney. Degenerative changes of the lumbar spine and slight scoliosis. XR/XR KUB [id number] IMPRESSION: 1. No acute process noted. 2. Calcifications superimposing the LEFT kidney and also probably the RIGHT. Th clair apparently represent known renal calculi.
--- NOTE | 2024-10-17 08:16 | US_ITS ---
WS: [id number] RENAL ULTRASOUND HISTORY: BILATERAL NEPHROLITHIASIS COMPARISON: CT 09/22/2018 TECHNIQUE: 2-D and color Doppler imaging of the kidney submitted. Right kidney: 12.3 cm x 5.6 cm x 5.7 cm. Cortex: 1.2 cm Normal size kidney. Exophytic hypoechoic mass from the superior pole measures 1.6 x 1.4 x 1.2 cm. This is probably a small cyst but too small to characterize. There are a few low-level echoes. Cyst was not noted on the prior CT from 2019. No renal calcifications identified. Left kidney: 11.4 cm x 5.2 cm x 5.7 cm. Cortex: 1.5 cm Normal size kidney. Single echogenic focus within the upper pole measuring 8 mm. These are nonobstructing calcifications. Aorta: Normal. Urinary Bladder: Normal distention. US/US renal BI* [id number] IMPRESSION: 1. No renal obstruction or hydronephrosis. 2. Echogenic focus upper pole LEFT kidney measures 8 mm. Based upon the KUB ob tained on 10/17/2024 there are probably additional calcifications which are not visualized by ultrasound.
== END 2024-10-17 07:33 | disposition home or self-care (01) ==
PROVIDERS: PCP Family Medicine; Visit Provider Urology
DX: N20.0 Calculus of kidney (principal); R93.422 Abnormal radiologic findings on diagnostic imaging of left kidney; N28.89 Other specified disorders of kidney and ureter; R93.421 Abnormal radiologic findings on diagnostic imaging of right kidney; M47.896 Other spondylosis, lumbar region
CPT/HCPCS: 74018; 76770

== ENCOUNTER → 2025-04-16 10:39 | Outpatient (BNVA) | payer OTHER, SELFPAY | PROVIDERS: PCP Family Medicine; Visit Provider Nurse Practitioner Family | DX: L57.8 Other skin changes due to chronic exposure to nonionizing radiation (principal); L81.4 Other melanin hyperpigmentation; Z08 Encounter for follow-up examination after completed treatment for malignant neoplasm; C79.89 Secondary malignant neoplasm of other specified sites; D22.5 Melanocytic nevi of trunk; L82.1 Other seborrheic keratosis | CPT/HCPCS: 99203 ==

== ENCOUNTER → 2025-05-04 14:46 | Outpatient (BNVA) | payer OTHER, SELFPAY | PROVIDERS: PCP Family Medicine; Visit Provider Internal Medicine | DX: I25.118 Atherosclerotic heart disease of native coronary artery with other forms of angina pectoris (principal); I10 Essential (primary) hypertension; E78.5 Hyperlipidemia, unspecified; Z87.891 Personal history of nicotine dependence | CPT/HCPCS: 99214 ==

== ENCOUNTER 2025-05-14 07:53 | Outpatient (CLI) | payer OTHER, SELFPAY ==
--- NOTE | 2025-05-14 07:57 | XR_ITS ---
WS: [id number] XR KUB [id number] REASON FOR EXAM: BILATERAL NEPHROLITHIASIS FINDINGS: No free air or retroperitoneal air. Moderate gaseous distention of the stomach. Several segments of gas-filled small bowel with paucity of gas within the colon. Multiple left renal calculi unchanged compared to 10/17/2024. No definite left intrarenal calculi. No ureteral calculi or bladder calculi. XR/XR KUB [id number] IMPRESSION: Stable urinary tract calculi as above.
== END 2025-05-14 07:54 | disposition home or self-care (01) ==
LOC: RAD 07:55
PROVIDERS: PCP Family Medicine; Visit Provider Urology
DX: N20.0 Calculus of kidney (principal)
CPT/HCPCS: 74018

== ENCOUNTER → 2025-08-11 08:19 | Outpatient (BNVA) | payer OTHER, SELFPAY | PROVIDERS: PCP Family Medicine; Visit Provider Dermatology | DX: C79.89 Secondary malignant neoplasm of other specified sites (principal); L82.1 Other seborrheic keratosis; Z08 Encounter for follow-up examination after completed treatment for malignant neoplasm; Z85.820 Personal history of malignant melanoma of skin; L82.0 Inflamed seborrheic keratosis; R20.8 Other disturbances of skin sensation; L53.8 Other specified erythematous conditions; D48.5 Neoplasm of uncertain behavior of skin; L57.0 Actinic keratosis | CPT/HCPCS: 11102; 17000; 17110; 99213 ==